=== PATIENT | female | born 1965 | race Caucasian/White ===

== ENCOUNTER → 2016-12-11 | Outpatient (CLI) | payer OTHER ==
--- NOTE | 2016-12-11 14:55 | KCIC ---
MR CERVICAL SPINE HISTORY: Left arm and shoulder pain neck pain COMPARISON: None Technique: Sagittal T2, sagittal STIR, sagittal T1, and axial gradient echo imaging was obtained of the cervical spine. FINDINGS: There is reversal of cervical lordosis centered over C5-C6 but this is mild. Craniocervical junction is within normal limits. The odontoid is intact. There is very subtle retrolisthesis of C3 5 on C6. Visualized soft tissues of the neck demonstrates a rounded nodular mass with some mixed T2 signal that measures up to 1.9 cm in size in the left lower anterior neck. At C2-3 there is no spinal stenosis. At C3-4 there is mild left foraminal narrowing from uncovertebral hypertrophy. At C4-5 there is no spinal stenosis. At C5-6 there is a disc osteophyte complex which minimally abuts the ventral surface of the cord. This also extends into the right foramen causing mild to moderate right foraminal narrowing. Correlate for right C6 radiculopathy symptoms. At C6-C7 there is a disc osteophyte complex which narrows the ventral subarachnoid space but does not cause mass effect upon the cord. At C7-T1 there is no spinal stenosis. IMPRESSION: Degenerative disc disease at C5-6 and C6-7. There is moderate right foraminal stenosis at C5-6. Correlate for right C6 radiculopathy. 1.9 cm Nodular lesion in the left neck soft tissues. This could represent a lymph node or other mass. Ultrasound could be performed for further evaluation if clinically warranted. Electronically signed by: Italo Lama MD (12/11/2016 2:51 PM) [place] [id number]
== END | disposition home or self-care (01) ==
LOC: KCIC MRI 14:06
PROVIDERS: ATTEND Nurse Practitioner
DX: M50.123 Cervical disc disorder at C6-C7 level with radiculopathy (principal)
CPT/HCPCS: 72141

== ENCOUNTER → 2016-12-13 | Outpatient (CLI) | payer BC, OTHER ==
[~2016-12-13] MED LIST: CYCL10TA2 PO
--- NOTE | 2016-12-13 16:36 | KCIC ---
Sonography of the neck Clinical indications: Further evaluation of nodule seen within the lower anterior left-sided the neck on recent MRI study of the cervical spine. FINDINGS: High-resolution sonography of the left side of neck demonstrates a heterogeneous solid nodule measuring 1.8 cm x 2.3 cm x 1.4 cm in size. Coarse calcifications are seen within it. Internal vascularity seen within it. IMPRESSION: Heterogeneous solid nodule measuring up to 2.3 cm in size corresponding to the MRI finding. This may represent an abnormally enlarged lymph node. Recommend a dedicated neck CT with IV contrast for further evaluation. Electronically signed by: Edmund King MD (12/13/2016 4:33 PM) [id number]
== END | disposition home or self-care (01) ==
LOC: KCIC US 15:07
PROVIDERS: ATTEND Nurse Practitioner
DX: R22.1 Localized swelling, mass and lump, neck (principal)
CPT/HCPCS: 76536

== ENCOUNTER → 2016-12-14 | Outpatient (CLI) | payer OTHER ==
[~2016-12-14] MED LIST changes: +IOHEXOL 300 MG/ML 100ML VIAL. IV ONE
--- NOTE | 2016-12-14 16:13 | KCIC ---
Indication: Mass or lymph node noted in the soft tissues on left on MRI. Further evaluation. Technique: Axial images and coronal and sagittal reformatted images are provided. 95 mL of intravenous Omnipaque 300 was administered without complication. Ultrasound from one day earlier and MRI from 3 days earlier were reviewed in comparison. One or more of the following individualized dose reduction techniques were utilized for this examination: 1. Automated exposure control 2. Adjustment of the mA and/or kV according to patient size 3. Use of iterative reconstruction technique Findings: Within the inferior left neck extending supraclavicular there is a lesion deep to the sternocleidomastoid and lateral to the internal jugular vein. This has some calcification but no definite enhancement. It measures 2.1 x 1.7 x 1.5 cm. This is lower density than other benign-appearing lymph nodes noted scattered along the cervical chains. This could represent a small calcified old hematoma. Calcified low-attenuation lymph node is a consideration as well. There is no airway narrowing. Paranasal sinuses and mastoid air cells are clear. Orbital contents are unremarkable. Parotid and submandibular glands are unremarkable. Thyroid is unremarkable. Lung apices are clear. There are degenerative changes in the spine greatest at C5-C6 and C6-C7. IMPRESSION: 1. Calcified oval-shaped mass at the area of concern on prior MRI and ultrasound. This could represent a calcified hematoma or calcification within a low-density lymph node. Short-term follow-up would be recommended, can be performed with ultrasound. Electronically signed by: Gutierrez Sanders MD (12/14/2016 4:10 PM) [id number]
== END | disposition home or self-care (01) ==
LOC: KCIC CT 15:03
PROVIDERS: ATTEND Nurse Practitioner
DX: R22.1 Localized swelling, mass and lump, neck (principal)
CPT/HCPCS: 70491; Q9967

== ENCOUNTER → 2017-01-23 | Outpatient (CLI) | payer BC ==
[~2017-01-23] MED LIST changes: -IOHEXOL 300 MG/ML 100ML VIAL. IV ONE
--- NOTE | 2017-01-23 14:29 | KCIC ---
Targeted ultrasound of the soft tissue neck HISTORY: Neck mass. COMPARISON: CT neck December 14, 2016 and ultrasound neck December 13, 2016. FINDINGS: A complex solid mass is identified in the area of concern, in the left supraclavicular region medially. Measures 22 mm x 12 mm x 18 mm. Accounting for differences in slice angle, this is roughly similar to the prior study. Echogenic foci compatible with calcifications are also redemonstrated. IMPRESSION: No significant change in size or appearance of the left neck mass. Electronically signed by: Yvon Cherry MD (01/23/2017 2:26 PM) [facility]
== END | disposition home or self-care (01) ==
LOC: KCIC US 12:50
PROVIDERS: ATTEND Nurse Practitioner
DX: R22.1 Localized swelling, mass and lump, neck (principal)
CPT/HCPCS: 76536